=== PATIENT | female | born 1990 | race Two or more races ===

== ENCOUNTER → 2024-12-24 | Outpatient (REF) | payer OTHER | LOC: M SFHCWAGY 16:46 | PROVIDERS: ATTEND Nurse Practitioner Family | DX: Z36.85 Encounter for antenatal screening for Streptococcus B (principal); Z3A.36 36 weeks gestation of pregnancy ==

== ENCOUNTER 2025-01-22 04:09 | Inpatient (IN) | payer OTHER ==
[~2025-01-22] VITALS: Ht 157.5 cm; Wt 84.0 kg
[2025-01-22] VITALS (29 sets, daily range): BP systolic 100–151; BP diastolic 50–75; TEMP 96.7; O2SAT 95–100
[2025-01-22] MEDS ORDERED: HOME MED LIST COMPLETE! XX SCH (04:20)
[2025-01-22] MEDS ORDERED: PRENTAB9 PO (04:20)
[2025-01-22 05:14] LABS: PLATELET COUNT, AUTOMATED 172 10^3/uL (150-450)
[2025-01-22] MEDS ORDERED: TRANEXAMIC ACID INJection 1,000 MG in NS 100 ML IV PRN (05:30)
[2025-01-22] MEDS ORDERED: METHYLERGONOVINE MALEATE 0.2 MG/ML 1 ML VIAL IM PRN (05:30)
[2025-01-22] MEDS ORDERED: LIDOCAINE 1% MDV 20 ML VIAL INFIL PRN (05:30)
[2025-01-22] MEDS ORDERED: NALOXONE INJ 0.4 MG/1 ML VIAL IV PRN ×3 (05:35→14:05)
[2025-01-22] MEDS ORDERED: EPIDURAL/PCA KEYS XX PRN (05:35)
[2025-01-22] MEDS ORDERED: ONDANSETRON 4MG 2ML VIAL IV PRN ×3 (05:35→14:05)
[2025-01-22] MEDS ORDERED: diphenhydrAMINE 50 MG/ML VIAL IV PRN ×2 (05:35→14:05)
[2025-01-22] MEDS ORDERED: LR 500 ML IV PRN (05:35)
[2025-01-22] MEDS: LR 1,000 ML IV ONE (05:51)
[2025-01-22 06:07] LABS: HIV 1&2 SCREEN NEGATIVE (NEGATIVE)
[2025-01-22] MEDS: FENTANYL/ROPIVACAINE/NACL BAG 100 ML EPIDURAL SCH (06:15)
[2025-01-22] MEDS ORDERED: LR 1,000 ML IV SCH (08:10)
[2025-01-22] MEDS: OXYTOCIN DRIP 30 UNITS in IV 1 EA IV SCH (08:27)
[2025-01-22 10:33] LABS: HEPATITIS C VIRUS ABY INDEX < 0.02 INDEX (<0.8)
[2025-01-22] MEDS ORDERED: dexAMETHasone 4 MG/ML 1 ML VIAL As Ordered ONE (12:16)
[2025-01-22] MEDS ORDERED: ONDANSETRON 4MG 2ML VIAL As Ordered ONE (12:16)
[2025-01-22] MEDS ORDERED: MORPHINE PRES-FREE INJ 10 MG/10 ML VIAL As Ordered ONE (12:16)
[2025-01-22] MEDS ORDERED: KETOROLAC 30 MG/ML 1 ML VIAL As Ordered ONE (12:16)
[2025-01-22] MEDS ORDERED: OXYTOCIN 30UNITS IN 0.9% NaCl 500ML IV BAG As Ordered ONE (12:16)
[2025-01-22] MEDS ORDERED: SODIUM BICARBONATE 8.4% INJ 50MEQ/50ML VIAL As Ordered ONE (12:17)
[2025-01-22] MEDS ORDERED: LIDOCAINE 2% W/EPINEPHrine 20 ML VIAL **PRES FREE As Ordered ONE (12:17)
[2025-01-22] MEDS: BICITRA 30 ML SOLN UDC PO ONE (12:27)
[2025-01-22] MEDS: ACETAMINOPHEN 650 MG SUPP PR ONE (12:28)
[2025-01-22] MEDS: AZITHROMYCIN INJ 500 MG, VIAL MATE ADAPTER 1 EACH in NS 250 ML IV ONE (12:29)
[2025-01-22] MEDS: ceFAZolin SODIUM 2 GM in DEXTROSE 5% (D5W) ADV/MINI-BAG 50 ML IV ONE (12:29)
[2025-01-22] MEDS ORDERED: OXYTOCIN INJ 10UNITS/ML 1ML VIAL As Ordered ONE (12:30)
[2025-01-22] MEDS ORDERED: TRANEXAMIC ACID 100 MG/ML 10ML VIAL As Ordered ONE (12:57)
[2025-01-22 13:14] LABS: CORD GAS ABE A -3.2; CORD GAS ABE V -4.6; CORD GAS HCO3 A 22.7 MMOL/L; CORD GAS HCO3 V 21.0 MMOL/L; CORD GAS O2 SAT A 74.6 %; CORD GAS O2 SAT V 73.7 %; CORD GAS PCO2 A 43.6 mmHg; CORD GAS PCO2 V 40.7 mmHg; CORD GAS PH A 7.334 UNITS; CORD GAS PH V 7.331 UNITS; CORD GAS PO2 A 31.7 mmHg; CORD GAS PO2 V 30.9 mmHg; CORD GAS SBC A 21.3 MMOL/L; CORD GAS SBC V 20.2 MMOL/L; CORD GAS TCO2 A 24.0 MMOL/L; CORD GAS TCO2 V 22.3 MMOL/L
[2025-01-22] MEDS ORDERED: SIMETHICONE 80MG CHEW TAB PO PRN (14:05)
[2025-01-22] MEDS: LR 1,000 ML IV SCH ×2 (14:05→14:54)
[2025-01-22] MEDS ORDERED: MOM 30 ML SUSPENSION UDC PO PRN (14:05)
[2025-01-22] MEDS ORDERED: **NOTE PATIENT COMMENT** MISC XX SCH (14:05)
[2025-01-22] MEDS ORDERED: CALCIUM CARBONATE 500 MG CHEW U/D PO PRN (14:05)
[2025-01-22] MEDS ORDERED: RHOGAM 300MCG (1500IU) INJ IM SCH (14:05)
[2025-01-22] MEDS ORDERED: MEPERIDINE 25 MG/ML 1 ML VIAL IV PRN (14:05)
[2025-01-22] MEDS ORDERED: MORPHINE 4 MG/ML 1 ML VIAL IV PRN (14:05)
[2025-01-22] MEDS: SLF 3 ML SYR IV SCH (14:05)
[2025-01-22] MEDS: KETOROLAC 30 MG/ML 1 ML VIAL IV SCH (14:05)
[2025-01-22] MEDS: OXYTOCIN DRIP 30 UNITS in IV 1 EA IV PRN (14:51)
[2025-01-22] MEDS: DOCUSATE SODIUM 100 MG CAPSULE PO SCH (20:09)
[2025-01-23 06:00] VITALS: BP 112/56; O2SAT 99
[2025-01-23] MEDS: PRENATAL VITAMINS CHEWABLE TABLET PO SCH (09:12)
[2025-01-23 09:59] LABS: PLATELET COUNT, AUTOMATED 127 10^3/uL (150-450)
[2025-01-23 10:00] VITALS: BP 108/53; O2SAT 99
[2025-01-23] MEDS: ACETAMINOPHEN 500 MG TAB PO PRN (12:10)
[2025-01-23 14:00] VITALS: BP 102/52; O2SAT 98
[2025-01-23] MEDS: IBUPROFEN 800 MG TAB PO SCH (17:00)
[2025-01-23 18:00] VITALS: BP 125/64; O2SAT 98
[2025-01-23] MEDS: PERCOCET 5MG/325MG TAB PO PRN (20:21)
[2025-01-23 22:48] VITALS: BP 114/56; O2SAT 98
[2025-01-24 01:55] VITALS: BP 143/75; O2SAT 97
[2025-01-24 05:40] VITALS: BP 130/60; O2SAT 97
[2025-01-24] MEDS: MEASLES,MUMPS,RUBELLA VACCINE INJ (MMR-II) SC.IMMUN ONE (09:00)
[2025-01-24 10:00] VITALS: BP 135/73; O2SAT 97
[2025-01-24 18:00] VITALS: BP 152/83; O2SAT 99
[2025-01-25 06:03] VITALS: BP 145/65; O2SAT 99
[2025-01-25] MEDS ORDERED: IBUP80TA PO (09:35)
[2025-01-25] MEDS ORDERED: COLA100C5 PO (09:35)
[2025-01-25 10:09] VITALS: BP 145/65; O2SAT 99
[2025-01-25] MEDS: PERCOCET 5MG/325MG TAB PO PRN (12:20)
== END 2025-01-25 14:00 | disposition home or self-care (01) | DRG 773 ==
LOC: M LDO 04:09 → M LDI 04:44 → M OBS 15:15
PROVIDERS: ADMIT Obstetrics & Gynecology; ATTEND Obstetrics & Gynecology
PROC: 10D00Z1 Extraction of Products of Conception, Low, Open Approach (ICD-10-PCS; principal; 2025-01-22 12:18)
DX: O48.0 Post-term pregnancy (principal); Z37.0 Single live birth; Z3A.40 40 weeks gestation of pregnancy; Z91.013 Allergy to seafood; Z88.7 Allergy status to serum and vaccine; Z88.8 Allergy status to other drugs, medicaments and biological substances; O76 Abnormality in fetal heart rate and rhythm complicating labor and delivery